=== PATIENT | female | born 1990 | race Caucasian/White ===

== ENCOUNTER 2021-03-21 19:34 | Emergency (ER) | payer OTHER ==
[~2021-03-21 19:34] MED LIST: FERROUS SULFAT325 MG PO; MACROBID 100 M100 MG PO; PHENERGAN 25 MG25 M1 PO; PRENATAL ONE T1 EACH PO
[2021-03-21 21:38] LABS: RED BLOOD COUNT 4.77 M/UL (4.00-5.10); WHITE BLOOD COUNT 9.1 K/UL (4.5-11.0)
[2021-03-22] MEDS ORDERED: LODINE CAP 300300 MG PO (01:25)
[2021-03-22] MEDS ORDERED: ZOFRAN ODT 4 MG4 MG PO (01:25)
[2021-03-22] MEDS ORDERED: OMNICEF 300 MG300 MG PO (01:25)
== END 2021-03-22 01:27 | disposition home or self-care (01) ==
LOC: ER1 19:34
PROVIDERS: Physician Assistant
DX: N39.0 Urinary tract infection, site not specified (principal); Z88.2 Allergy status to sulfonamides
CPT/HCPCS: 80053; 81001; 82150; 83690; 84703; 85025; 87086; 99284; Q9967